=== PATIENT | male | born 1995 | race Two or more races ===

== ENCOUNTER 2021-05-22 15:53 | Emergency (ER) | payer OTHER ==
[~2021-05-22] VITALS: Ht 165.1 cm; Wt 73.0 kg
[2021-05-22] MEDS ORDERED: LORAZEPAM 2MG/ML CPJ IV STA (16:22)
[2021-05-22] MEDS ORDERED: SODIUM CHLORIDE 0.9% 1,000 ML IV ONE (16:30)
[2021-05-22] MEDS ORDERED: LORAZEPAM 2MG/ML CPJ IM ONE (16:45)
[2021-05-22 17:47] LABS: BASOPHILS % 0.8 % (0.0-2.0); EOSINOPHILS % 0.9 % (0.0-5.0); HEMATOCRIT. 48.1 % (42.0-52.0); HEMOGLOBIN. 16.5 g/dL (14.0-18.0); LYMPHOCYTES % 36.5 % (20.0-50.0); MEAN CORPUSCULAR VOLUME 90.6 fL (80.0-94.0); MEAN PLATELET VOLUME 8.3 fl (7.4-10.4); NEUTROPHILS % 55.8 % (40.0-76.0); PLATELET 258 x1000/uL (130-400); RED BLOOD CELL COUNT 5.31 mill/uL (4.7-6.1); RED CELL DISTRIBUTION WIDTH 14.5 % (11.6-14.6)
[2021-05-22 17:50] LABS: CHLORIDE 110 mEq/L (98-107)
[2021-05-22 18:04] LABS: ETHANOL BLOOD 399 mg/dL
[2021-05-22 19:35] VITALS: BP 135/72
[2021-05-22 20:28] LABS: *AMPHETAMINES SCREEN URINE NEGATIVE (NEGATIVE); *BARBITURATES SCREEN URINE NEGATIVE (NEGATIVE); *BENZODIAZEPINES SCREEN URINE NEGATIVE (NEGATIVE); *COCAINE SCREEN URINE NEGATIVE (NEGATIVE); METHADONE URINE SCREEN NEGATIVE (NEGATIVE); OPIATES URINE SCREEN NEGATIVE (NEGATIVE)
[2021-05-22 20:29] LABS: CANNABINOID URINE SCREEN PRESUMTIVE POSITIVE (NEGATIVE); PHENCYCLIDINE URINE SCREEN NEGATIVE (NEGATIVE)
== END 2021-05-22 19:45 ==
LOC: EDBD 15:53 → ER 15:53
DX: F10.129 Alcohol abuse with intoxication, unspecified (principal); S83.8X1A Sprain of other specified parts of right knee, initial encounter; S43.402A Unspecified sprain of left shoulder joint, initial encounter; R51.9 Headache, unspecified; R07.89 Other chest pain; R45.1 Restlessness and agitation; Z78.1 Physical restraint status; Y90.8 Blood alcohol level of 240 mg/100 ml or more; F12.90 Cannabis use, unspecified, uncomplicated; R79.89 Other specified abnormal findings of blood chemistry; Z71.41 Alcohol abuse counseling and surveillance of alcoholic; Y93.89 Activity, other specified; V54.5XXA Driver of pick-up truck or van injured in collision with heavy transport vehicle or bus in traffic accident, initial encounter; Y92.488 Other paved roadways as the place of occurrence of the external cause
CPT/HCPCS: 36415; 70450; 71045; 73030; 73562; 80053; 80305; 80320; 85025; 96360; 96361; 96372; 99285; J2060; J7030; G0480